=== PATIENT | male | born 1955 | race Caucasian/White ===

== ENCOUNTER → 2021-08-21 | Day surgery (SDC) | payer MEDICARE, OTHER ==
[~2021-08-21] MED LIST: ALFUZOSIN HCL10 MG PO; CYMBALTA30 MG PO; DEXAMETHASONE SOD PHOS 10 MG/1 ML VIAL ONE; EPINEPHRINE HCL 1:1000 1ML 1 MG/ML AMP ONE; FENTANYL CITRATE/PF 100MCG/2 ML INJ ONE; GLYCOPYRROLATE INJ 0.2 MG/ML VIAL ONE; KETOROLAC TROMETHAMINE 30 MG/ML VIAL ONE; LIDOCAINE 1% W/EPINEPHRINE 20 ML VIAL ONE; LIDOCAINE HCL 2% JELLY 5 ML TUBE ONE; LIDOCAINE HCL 2% LOCAL INJ 5 ML SDV VIAL INJ ONE; LOTREL 10-20 M1 EACH PO; MIDAZOLAM HCL 2 MG/2 ML VIAL ONE; NEOSTIGMINE 1 MG/ML 10ML VIAL ONE; ONDANSETRON HCL INJ 2MG/ML 2ML 2 MG/ML VIAL ONE; POVIDONE IODINE 0.05% 0.05 % ML PO ONE; PROPOFOL IV EMULSION 10 MG/ML 20 ML VIAL ONE; ROCURONIUM BROMIDE 10 MG/ML 5ML VIAL IV ONE; SEVOFLURANE INHAL SOLN 250 ML PEN BTL ONE; ZYRTEC10 M3 PO
[2021-08-21 12:32] VITALS: BP 109/68
== END | disposition home or self-care (01) ==
LOC: OR 09:00 → EDBD 11:00
PROVIDERS: ATTEND Otolaryngology Otolaryngology/Facial Plastic Surgery
DX: J32.0 Chronic maxillary sinusitis (principal); J32.1 Chronic frontal sinusitis; J32.2 Chronic ethmoidal sinusitis; J32.3 Chronic sphenoidal sinusitis; J33.9 Nasal polyp, unspecified; J34.2 Deviated nasal septum; J34.89 Other specified disorders of nose and nasal sinuses; G47.33 Obstructive sleep apnea (adult) (pediatric); E11.9 Type 2 diabetes mellitus without complications; I45.10 Unspecified right bundle-branch block; I10 Essential (primary) hypertension; F41.9 Anxiety disorder, unspecified; Z88.0 Allergy status to penicillin; Z79.899 Other long term (current) drug therapy; Z86.19 Personal history of other infectious and parasitic diseases
CPT/HCPCS: 31259; 31267; 31276; 71046; 88305; 88312; 93005; J0171; J1100; J1885; J2001 ×2; J2250; J2405; J2704; J2710; J3010